=== PATIENT | male | born 1945 | race Caucasian/White ===

== ENCOUNTER 2016-08-28 01:47 | Emergency (ER) | payer MEDICARE, OTHER ==
[2016-08-28 01:58] VITALS: TEMP 98; BMI 26.5
[2016-08-28] MEDS ORDERED: HYDROmorphone HCL CARPU-JECT 1 MG/1 ML DISP.SYRIN IVPB ONE (02:29)
[2016-08-28] MEDS ORDERED: HYDROmorphone HCL CARPU-JECT 2 MG/1 ML DISP.SYRIN ONE (02:30)
--- NOTE | 2016-08-28 02:35 | PDOC ---
History of Present Illness - General Chief Complaint: Urinary Problem Stated Complaint: INABILITY TO URINATE Time Seen by Provider: 08/28/16 02:06 - History of Present Illness Initial Comments: 08/28/16 02:35 prostate ca s/p radiation therapy complicated by recurrent urinary obstruction presents now with increasing pain and no urinary output since 1pm no fever/ chills no hematuria fhx: non-contrib ros: reviewed and otherwise negative o/e in pain, writhing + dipahoresis non icteric nl jvp rrr cta distended bladder lower abd no cvat no edema nl speech, nl gait no adenopathy a/p urinary obstruction unable to pass calderon appreciate intervention Past History - Past Medical History Allergies/Adverse Reactions: Allergies Allergy/AdvReac Type Severity Reaction Status Date / Time No Known Allergies Allergy Verified 08/28/16 01:49 Home Medications: Ambulatory Orders Ciprofloxacin [Cipro (Restricted To Id)] 500 mg PO DAILY #20 tablet 08/28/16 Mirabegron [Myrbetriq] 50 mg PO DAILY 08/28/16 Anemia: No Asthma: No Cancer: Yes (PROSTATE) Cardiac Disorders: No CVA: No COPD: No CHF: No Dementia: No Diabetes: No GI Disorders: No Disorders: Yes (prostate) HTN: No Liver Disease: No Seizures: No Thyroid Disease: No - Psycho/Social/Smoking Cessation Hx Anxiety: No Suicidal Ideation: No Smoking Status: No Smoking History: Never smoked Have you smoked in the past 12 months: No Number of Cigarettes Smoked Daily: 0 Information on smoking cessation initiated: No Hx Alcohol Use: Yes (SOCIAL) Drug/Substance Use Hx: No Substance Use Type: None Hx Substance Use Treatment: No *Physical Exam - Vital Signs Last Vital Signs Temp Pulse Resp BP Pulse Ox 98 F 106 H 22 162/89 97 08/28/16 01:53 08/28/16 01:53 08/28/16 01:53 08/28/16 01:53 08/28/16 01:53 *DC/Admit/Observation/Transfer Diagnosis at time of Disposition: Urinary (tract) obstruction - Discharge Dispostion Disposition: HOME Condition at time of disposition: Stable - Prescriptions Prescriptions: Ciprofloxacin [Cipro (Restricted To Id)] 500 mg PO DAILY #20 tablet - Referrals Referrals: Felecia Oliver MD [Primary Care Provider] - Call tomorrow
[2016-08-28] MEDS ORDERED: LIDOCAINE HCL 1%, 10 MG/ML (20ML VIAL) ONE (02:40)
[2016-08-28 03:30] VITALS: BP 120/68; PULSE 87
[2016-08-28] MEDS ORDERED: CIPROFLOXACIN 500 MG TABLET (RESTRICTED TO ID) PO ONE (03:42)
[2016-08-28] MEDS ORDERED: CIPROFLOXACIN 250 MG TABLET (RESTRICTED TO ID) PO ONE (03:43)
[2016-08-28] MEDS ORDERED: HYDROmorphone HCL CARPU-JECT 1 MG/1 ML DISP.SYRIN IVPUSH ONE (03:43)
== END 2016-08-28 03:47 | disposition home or self-care (01) ==
LOC: SUPCPDRO 01:47 → FER 01:47
PROC: 3E033NZ Introduction of Analgesics, Hypnotics, Sedatives into Peripheral Vein, Percutaneous Approach (ICD-10-PCS; principal; 2016-08-28)
PROC: 0T9B70Z Drainage of Bladder with Drainage Device, Via Natural or Artificial Opening (ICD-10-PCS; 2016-08-28)
DX: N13.9 Obstructive and reflux uropathy, unspecified (principal); Z85.46 Personal history of malignant neoplasm of prostate
CPT/HCPCS: 99281-25